=== PATIENT | male | born 1935 | race Caucasian/White ===

== ENCOUNTER → 2019-03-31 | Outpatient (CLI) | payer OTHER, MEDICARE ==
[~2019-03-31] MED LIST: MIRAPEX; NORCO 5-325 TA1 EACH PO
== END ==
LOC: MRI 09:33
DX: M47.813 Spondylosis without myelopathy or radiculopathy, cervicothoracic region (principal); M48.03 Spinal stenosis, cervicothoracic region; M41.84 Other forms of scoliosis, thoracic region; M25.78 Osteophyte, vertebrae; M50.21 Other cervical disc displacement, high cervical region; G70.00 Myasthenia gravis without (acute) exacerbation; M62.81 Muscle weakness (generalized); R29.898 Other symptoms and signs involving the musculoskeletal system; F03.90 Unspecified dementia, unspecified severity, without behavioral disturbance, psychotic disturbance, mood disturbance, and anxiety